=== PATIENT | female | born 1975 | race Caucasian/White ===

== ENCOUNTER 2019-02-26 09:19 | Emergency (ER) | payer OTHER ==
[2019-02-26 09:26] VITALS: BP 128/76; PULSE 81; TEMP 97.9; BMI 22.6
--- NOTE | 2019-02-26 09:52 | PDOC ---
History of Present Illness - General Chief Complaint: Injury Stated Complaint: L/LEG PAIN Time Seen by Provider: 02/26/19 09:33 History Source: Patient Exam Limitations: Clinical Condition - History of Present Illness Initial Comments: 02/26/19 09:50 Patient with no significant past medical history presented with complaint of pain to left great toe and left second toe status post slip on snow going down a staircase and hitting the toe on a wall yesterday. Patient denies fall. Patient report increased pain to left great toe with ambulation. Patient reports taking Aleve yesterday for pain but nothing today. Denies any other symptoms Occurred: reports: yesterday Severity: reports: mild Pain Location: reports: lower extremity (left great toe) Method of Injury: Yes: direct blow, fall Modifying Factors: improves with: pain medication (aleve) Associated Symptoms (Fall): denies symptoms Past History - Past Medical History Allergies/Adverse Reactions: Allergies Allergy/AdvReac Type Severity Reaction Status Date / Time No Known Allergies Allergy Verified 02/26/19 09:24 Home Medications: Ambulatory Orders Levothyroxine [Synthroid -] 75 mcg PO DAILY 11/24/17 Ibuprofen 800 mg PO Q8H PRN #20 tablet 02/26/19 COPD: No Thyroid Disease: Yes (HYPO) - Psycho Social/Smoking Cessation Hx Smoking History: Never smoked Information on smoking cessation initiated: No Review of Systems - Review of Systems Able to Perform ROS?: Yes Is the patient limited Turkish proficient: No Constitutional: No: Malaise, Weakness HEENTM: No: Symptoms Reported Respiratory: No: Symptoms reported Cardiac (ROS): No: Symptoms Reported ABD/GI: No: Symptoms Reported : No: Symptoms Reported Musculoskeletal: Yes: Symptoms Reported, See HPI, Joint Pain (left great toe), Muscle Pain (left great toe and 2nd toe pain) Integumentary: No: Symptoms Reported All Other Systems: Reviewed and Negative *Physical Exam - Vital Signs Last Vital Signs Temp Pulse Resp BP Pulse Ox 97.9 F 81 16 128/76 99 02/26/19 09:24 02/26/19 09:24 02/26/19 09:24 02/26/19 09:24 02/26/19 09:24 - Physical Exam General Appearance: Yes: Nourished, Appropriately Dressed. No: Apparent Distress HEENT: positive: Normal ENT Inspection Neck: positive: Supple Respiratory/Chest: negative: Respiratory Distress, Accessory Muscle Use Musculoskeletal: positive: Normal Inspection, Other (moderate tenderness to metatarsal and phalange of left great toe. mild tenderness to phalange of left 2nd toe) Extremity: positive: Normal Capillary Refill, Normal Range of Motion, Other ( moderate tenderness to metatarsal and phalange of left great toe. mild tenderness to phalange of left 2nd toe. mild ecchymosis to plantar aspect of left great toe) Integumentary: positive: Warm Neurologic: positive: Fully Oriented, Alert, Normal Mood/Affect, Normal Response ED Treatment Course - RADIOLOGY Radiology Studies Ordered: Category Date Time Status FOOT-LEFT [RAD] Stat Radiology 02/26/19 09:45 Ordered TOE(S) LEFT [RAD] Stat Radiology 02/26/19 09:45 Ordered Medical Decision Making - Medical Decision Making 02/26/19 09:52 Patient with no significant past medical history presented with complaint of pain to left great toe and left second toe status post slip on snow going down a staircase and hitting the toe on a wall yesterday. Patient denies fall. Patient report increased pain to left great toe with ambulation. Patient reports taking Aleve yesterday for pain but nothing today. Denies any other symptoms Exam significant for moderate tenderness to metatarsal was seen phalange of left great toe with mild tenderness to phalange of left second toe. Mild ecchymosis to plantar aspect of left great toe. Rest of the foot with no tenderness. Symptoms likely to contusion versus toe fracture. X-ray of left great toe and foot ordered to rule out fracture 02/26/19 11:12 X-ray of left toe shows hairline fracture and distal phalange of left great toe. Patient clinically stable for management with guillermo taped and Motrin as needed for pain with advised to keep weight of left foot for the next 3 days and keep leg elevated with podiatry follow-up Discharge - Discharge Information Problems reviewed: Yes Clinical Impression/Diagnosis: Toe pain, left Condition: Stable Disposition: HOME - Admission No - Additional Discharge Information Prescriptions: Ibuprofen 800 mg PO Q8H PRN #20 tablet PRN Reason: pain - Follow up/Referral Referrals: Martinez Maynard MD [Staff Physician] - - Patient Discharge Instructions Patient Printed Discharge Instructions: DI for Toe Fracture Additional Instructions: X-ray of toe shows hairline crack in the great toe. Keep with of toe for the next 2 days. Take prescribed medication as needed for pain. Soaks foot in [place] salt water to help with swelling. Follow-up referred to podiatry as needed if symptoms persist more than 4 days - Post Discharge Activity Work/Back to School Note: Back to Work
== END 2019-02-26 11:12 | disposition home or self-care (01) ==
LOC: JERFT 09:19
DX: M79.675 Pain in left toe(s) (principal); W22.01XA Walked into wall, initial encounter; Y93.89 Activity, other specified; Y92.410 Unspecified street and highway as the place of occurrence of the external cause
CPT/HCPCS: 73630-TC-LT; 73660-TC-LT-FY; 99282-25

== ENCOUNTER 2020-12-07 13:24 | Observation (INO) | payer OTHER ==
[2020-12-07] MEDS ORDERED: LORazepam 2 MG/ML SDV VIAL IVPUSH ONE ×2 (14:37→15:15)
[2020-12-07] MEDS ORDERED: LORazepam 2 MG/ML SDV VIAL ONE (14:39)
[2020-12-07] MEDS: SODIUM CHLORIDE 1,000 ML IV SCH (14:55)
[2020-12-07 14:56] LABS: BASO % 0.5 % (0-2.0); EOS % 0.3 % (0-4.5); LYMPH % 45.5 % (8-40); MCH 30.4 pg (25.7-33.7); MCHC 33.3 g/dl (32.0-36.0); MEAN CELL VOLUME 91.2 fl (80-96); MONO % 7.9 % (3.8-10.2); NEUT % 45.8 % (42.8-82.8); PLATELET COUNT 300 10^3/uL (134-434); RBC 4.27 M/mm3 (3.60-5.2); RDW 13.8 % (11.6-15.6); WHITE BLOOD COUNT 10.2 K/mm3 (4.0-10.0)
[2020-12-07 15:01] LABS: INR 1.13 (0.83-1.09); PROTHROMBIN TIME (PATIENT) 13.6 SEC (9.7-13.0)
[2020-12-07 15:04] LABS: ACTIVATED PTT 29.2 SECONDS (25.2-36.5)
[2020-12-07 15:09] LABS: CHLORIDE 105 mmol/L (98-107); SODIUM 139 mmol/L (136-145)
[2020-12-07 15:12] LABS: ALBUMIN 4.5 g/dl (3.4-5.0); BLOOD UREA NITROGEN 13.1 mg/dL (7-18); CO2 22 mmol/L (21-32); GLUCOSE,RANDOM 106 mg/dL (74-106)
[2020-12-07 15:15] LABS: CHOLESTEROL 205 mg/dL (50-200); CREATININE 0.8 mg/dL (0.55-1.3); SGOT/AST 18 U/L (15-37); SGPT/ALT 18 U/L (13-61); TRIGLYCERIDES 124 mg/dL (0-150)
[2020-12-07 15:16] LABS: BILIRUBIN,TOTAL 0.3 mg/dL (0.2-1); LDL CHOLESTEROL (ONLY SJRH) 113 mg/dL (5-100); TOT PROT 8.2 g/dl (6.4-8.2)
[2020-12-07 15:17] LABS: ALK PHOS 60 U/L (45-117); HDL CHOLESTEROL 46 mg/dL (40-60)
[2020-12-07 15:20] LABS: ANION GAP 12 MMOL/L (8-16)
[2020-12-07] MEDS ORDERED: POTASSIUM CHLORIDE TABS 20 MEQ TABLET.ER (FP) PO ONE ×2 (15:55→16:54)
[2020-12-07 16:35] LABS: EPI CELLS 10 /uL (0-25.1); HYALINE CASTS 0 /uL (0-3.1); PH,URINE 5.5 (5.0-8.0); URINE APPEARANCE CLEAR; URINE BACTERIA 46 /uL (0-1359); URINE BILIRUBIN NEGATIVE (NEGATIVE); URINE COLOR YELLOW; URINE GLUCOSE (UA) NEGATIVE (NEGATIVE); URINE KETONE TRACE (NEGATIVE); URINE LEUK ESTERASE TRACE (NEGATIVE); URINE NITRITE NEGATIVE (NEGATIVE); URINE PROTEIN NEGATIVE (NEGATIVE); URINE RBC 10 /uL (0-23.9); URINE UROBILINOGEN 0.2 mg/dL (0.2-1.0); URINE WBC 9 /uL (0-25.8)
[2020-12-07 16:53] LABS: MAGNESIUM 2.1 mg/dL (1.8-2.4)
[2020-12-07] MEDS ORDERED: ACETAMINOPHEN 325 MG TABLET (FP) PO PRN (17:33)
[2020-12-07] MEDS ORDERED: ASPIRIN 81 MG CHEWABLE TABLETS ONE (19:20)
[2020-12-07] MEDS: ASPIRIN 81 MG CHEWABLE TABLETS PO SCH (19:30)
[2020-12-07] MEDS ORDERED: ATORVASTATIN CA 40 MG TABLET (FP) PO SCH (22:00)
[2020-12-07] MEDS ORDERED: ATORVASTATIN CA 40 MG TABLET (FP) ONE (22:04)
[2020-12-08] MEDS: SODIUM CHLORIDE 1,000 ML IV SCH (01:36)
[2020-12-08] MEDS ORDERED: LEVOTHYROXINE NA 75 MCG TABLET (FP) PO SCH (07:00)
[2020-12-08 08:09] LABS: BLOOD UREA NITROGEN 12.8 mg/dL (7-18); CALCIUM 8.1 mg/dL (8.5-10.1)
[2020-12-08 08:13] LABS: CREATININE 0.6 mg/dL (0.55-1.3)
[2020-12-08 09:07] VITALS: BMI 24.8
[2020-12-08 09:31] VITALS: BP 137/79; PULSE 83; TEMP 98.4
[2020-12-08] MEDS: ASPIRIN 81 MG CHEWABLE TABLETS PO SCH (09:33)
[2020-12-08] MEDS ORDERED: ENOXAPARIN NA (PORCINE) 40 MG/0.4 ML DISP.SYRIN SQ SCH (10:00)
== END 2020-12-08 15:10 | disposition home or self-care (01) ==
LOC: JER 13:24 → INTOOBSV 13:56 → UNDOADMOB 13:56 → JERBED 13:56 → J4W 12-08 00:24
PROVIDERS: ADMIT Internal Medicine; ATTEND Internal Medicine
PROC: 3E023GC Introduction of Other Therapeutic Substance into Muscle, Percutaneous Approach (ICD-10-PCS; principal; 2020-12-07)
PROC: 3E033GC Introduction of Other Therapeutic Substance into Peripheral Vein, Percutaneous Approach (ICD-10-PCS; 2020-12-07)
PROC: 3E0337Z Introduction of Electrolytic and Water Balance Substance into Peripheral Vein, Percutaneous Approach (ICD-10-PCS; 2020-12-07)
DX: G45.9 Transient cerebral ischemic attack, unspecified (principal); E16.2 Hypoglycemia, unspecified; M19.90 Unspecified osteoarthritis, unspecified site; E78.5 Hyperlipidemia, unspecified; E87.6 Hypokalemia; E03.9 Hypothyroidism, unspecified; Z29.9 Encounter for prophylactic measures, unspecified
CPT/HCPCS: 36415; 70450-TC; 70551-TC; 80048; 80053; 80061; 81003; 82550; 82962; 83036; 83735; 84443; 84484; 84703; 85025; 85610; 85730; 86850; 86900; 86901; 93005; 93010; 99285-25; C9803; G0378; U0003; U0005

== ENCOUNTER 2022-01-12 07:57 | Emergency (ER) | payer OTHER ==
[2022-01-12 08:17] VITALS: BP 145/83; PULSE 78; RESP 18; TEMP 98.5; BMI 23.5
== END 2022-01-12 09:02 | disposition home or self-care (01) ==
LOC: JERFT 07:57
DX: H11.32 Conjunctival hemorrhage, left eye (principal)
CPT/HCPCS: 99283-25